=== PATIENT | male | born 1970 | race Caucasian/White ===

== ENCOUNTER 2016-07-31 19:28 | Inpatient (IN) | payer BC ==
--- NOTE | ~2016-07-31 | PA ---
Unit #: [id number] #: [id number] Patient: JOSSUE HOPKINS [id number] [facility] [address] [place] [address] [id number] MR#: [id number] NAME: JOSSUE HOPKINS. ROOM: [facility] Age: 45 Sex: M Admission Date: 08/01/2016 : 1970 Date of Assessment: 08/01/2016 Attending Physician: He Mackay M.D. Admitting Physician: He Mackay M.D. Primary Care Physician: Primary Care Physician No PSYCHIATRIC ASSESSMENT INFORMANTS The patient reliability, fair informant and chart reliability, good. CHIEF COMPLAINT Detox. HISTORY OF PRESENT ILLNESS Jossue Hopkins is a 45-year-old male, presented with the above-mentioned complaint. The patient reported drinking heavily in the past 20 years. He reported consuming 10 to 20 single serve shots a day. The patient stated that last period of sobriety was from 1994 to 1997. The patient stated that he started having chest pain. The patient reported "I wanted to stop drinking." Denied any suicidal or homicidal ideation. Denied any psychotic symptom. Denied any depressive symptom. The patient reported tobacco use, age of onset 13 and alcohol, age of onset 13. Longest period of sobriety 3 years. Last period of sobriety in 1997. The patient reported history of blackouts and withdrawal symptom, but no history of any HIV, hepatitis, or any IV drug use. The patient reported abdominal cramping, muscle cramping, depressed mood, irritability, and headache. Needing inpatient admission at this time for psychiatric stabilization. PAST PSYCHIATRIC HISTORY Unremarkable for any previous treatment. FAMILY HISTORY AND SOCIAL HISTORY The patient has poor support system. No history of abuse. MEDICAL HISTORY Unremarkable for any chronic medical condition. Musculoskeletal; muscle strength and tone, no atrophy or abnormal movement. Gait normal. MEDICATION HISTORY None. ALLERGIES No known drug allergies. SUBSTANCE ABUSE HISTORY Please see above. REVIEW OF SYSTEMS HEENT: Eyes, clear. Ears, nose, mouth, and throat; clear. Unit #: [id number] #: [id number] Patient: JOSSUE HOPKINS CARDIOVASCULAR: Unremarkable. RESPIRATORY: Unremarkable. GI: Unremarkable. : Unremarkable. SKIN: Unremarkable. LYMPH NODE: Unremarkable. NEUROLOGIC: Unremarkable. ENDOCRINE: Unremarkable. HEMATOLOGIC: Unremarkable. ALLERGIC/IMMUNOLOGIC: Unremarkable. MUSCULOSKELETAL: Muscle strength and tone, no atrophy or abnormal movement. Gait normal. MENTAL STATUS EXAMINATION CONSTITUTIONAL: Measurement of vital signs; temperature 98.0, heart rate 104, and respiratory rate 16. Height 5 feet 9 inches and weight 187 pounds. GENERAL APPEARANCE: The patient dressed casually. The patient did not show any facial deformity. MUSCULOSKELETAL: Please see above. PSYCHIATRIC EXAMINATION Description of speech; regular rate, normal volume, normal articulation, and coherent. Description of thought process, goal directed. Description of association, intact. Description of abnormal psychotic thinking; the patient denied any hallucinations or delusions, but mood lability and substance abuse. Description of the patient's judgment: Concerning everyday activity, poor. Social situation, poor. Concerning psychiatric condition, poor. Complete mental status examination; oriented in time, place, and person. Recent and remote memory, fair. Attention span and concentration, fair. Language, able to name object and repeat phrases. Fund of knowledge, aware of current event and passive vocabulary intact. Mood and affect, sad and dysphoric. Insight and judgment, fair to poor. ASSETS AND LIABILITIES Assets, the patient is articulate and able to take care of his ADL. Liability, history of substance abuse. ADMITTING DIAGNOSES Psychiatric: Alcohol use disorder, severe, F10.20 and mood disorder, not otherwise specified, F32.9. Secondary diagnosis: Deferred. Medical diagnosis: Heart problems. Stressors: Psychosocial stressors. PSYCHIATRIC PLAN AND TREATMENT GOAL AND DISCHARGE PLAN 1. Advised to admit the patient on the inpatient unit. Provide safe, supportive, and structured environment. 2. Ordered labs; CBC, CMP, UA, and UDS. 3. Detox protocol and detox monitoring. 4. The patient to attend all the programing, group therapy, individual therapy, and chemical dependency group. Unit #: [id number] #: [id number] Patient: JOSSUE HOPKINS TREATMENT GOAL To attain euthymic mood, gain insight into his problem, and learn coping skills. DISCHARGE PLAN Plan to stabilize the patient and consider followup in outpatient program. ESTIMATED LENGTH OF STAY 3 to 5 days. Dictated by... He Mackay M.D. ELIZABETH/radha TD: 08/01/2016 14:47 JOB #: [id number] PSYCHIATRIC ASSESSMENT Page 1 of 1 X He Mackay MD PSYCHIATRIC ASSESSMENT
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
--- NOTE | ~2016-07-31 | PN ---
Unit #: [id number] #: [id number] Patient: JOSSUE MAX [id number] [facility] [address] [place] [address] [id number] MR#: [id number] NAME: JOSSUE MAX. ROOM: P211 Age: 45 Sex: M Admission Date: 08/01/2016 : 1970 Attending Physician: He Mackay M.D. Admitting Physician: He Mackay M.D. Primary Care Physician: Primary Care Physician Maria Fernanda CHAPPELL PROGRESS NOTES DATE 08/02/2016 DISCUSSION Jossue is a 45-year-old male, seen on 08/02/2016. The patient interviewed, chart reviewed, and obtained information from the nursing staff. The patient was compliant and cooperative, tolerating medication fairly well. The patient is currently on detox protocol. The patient's vital signs stable. REVIEW OF SYSTEMS Complete review of systems unremarkable. MENTAL STATUS EXAMINATION General appearance: Patient dressed casually. Attention span and concentration, fair. Oriented to place and person. Mood and affect, labile. Speech, monotone. Thought process, concrete. The patient denied any thoughts of harming self or others. Recent and remote memory, poor. Insight and judgment, poor. DIAGNOSIS Alcohol use disorder, severe. ASSESSMENT/PLAN Advised to continue with the current medication and therapeutic protocol, and if needed consider further adjustment of medication. Dictated by... Tevin Baird/vazquez TD: 08/05/2016 05:48 JOB #: [id number] Unit #: [id number] #: [id number] Patient: JOSSUE MAX PROGRESS NOTES Page 1 of 1 X He Mackay MD PROGRESS NOTE
--- NOTE | ~2016-07-31 | DS ---
Unit #: [id number] #: [id number] Patient: CHANDAN MAX [id number] [facility] [address] [place] [address] [id number] MR#: [id number] NAME: CHANDAN MAX. ROOM: [facility] Age: 45 Sex: M Admission Date: 08/01/2016 : 1970 Discharge Date: 08/03/2016 Attending Physician: He Mackay M.D. DISCHARGE SUMMARY REASON FOR ADMISSION Detox. DIAGNOSTIC STUDIES LABORATORY RESULTS: Unremarkable. HOSPITAL COURSE The patient was admitted to inpatient unit on 08/01/2016 and discharged on 08/03/2016. The patient was treated with detox protocol, chemical dependency group, expressive therapy, medication management, psychotherapy. The patient responded well with the above modalities of treatment. The patient showed improvement. Subsequently, the patient was discharged with a plan to follow up in outpatient clinic. DISCHARGE MEDICATIONS None. DISCHARGE DIAGNOSES Psychiatric: Alcohol use disorder, severe, F10.20; mood disorder, not otherwise specified, F32.9. Secondary diagnosis: Deferred. Medical diagnosis: Heart problems. Stressors: Psychosocial stressors. DISCHARGE INSTRUCTIONS The patient to follow up in outpatient clinic as per social media content specialist. CONDITION ON DISCHARGE The patient was pleasant and cooperative. Denied any psychotic symptom or any suicidal ideation. PROGNOSIS Guarded. DIET AND ACTIVITY As tolerated. Dictated by... He Mackay M.D. Unit #: [id number] #: [id number] Patient: CHANDAN MAX SZC/modl TD: 08/03/2016 16:05 JOB #: [id number] DISCHARGE SUMMARY Page 1 of 1 X He Mackay MD X DISCHARGE SUMMARY
[~2016-07-31 19:28] MED LIST: KETOPROFEN PO
== END 2016-08-03 09:28 | disposition home or self-care (01) | DRG 897 ==
LOC: P2S 08-01 00:10
PROC: HZ2ZZZZ Detoxification Services for Substance Abuse Treatment (ICD-10-PCS; principal; 2016-08-01)
DX: F10.20 Alcohol dependence, uncomplicated (principal); F39 Unspecified mood [affective] disorder
CPT/HCPCS: 86592